=== PATIENT | female | born 1985 | race African-American/Black ===

== ENCOUNTER 2019-07-29 07:00 | Outpatient (RCR) | payer BC, SELFPAY ==
[2019-07-19 14:27] VITALS: BMI 42.1
--- NOTE | 2019-07-29 07:23 | WPDPN ---
Progress Note: A&P Assessment and Plan (1) Open wound of left breast: Code(s): S21.002A - Unspecified open wound of left breast, initial encounter Status: Acute Assessment and Plan: The wound is getting smaller in size. I think it is still reasonable to proceed with imaging and we are working on this. I will see her back. Continue dressing changes. She has a full list of instructions. Understands what monitor for. He is going to call with any questions or concerns. (2) History of bilateral breast reduction surgery: Code(s): Z98.890 - Other specified postprocedural states Status: Acute Review of Systems Review of Systems: All systems reviewed & are unremarkable except as noted in HPI and below Exam Const: General: comfortable, no acute distress, alert and awake; No acute distress Orientation/consciousness: oriented to person HENMT: Head: normal to inspection Ears: external ears normal General nose exam: Normal external nose present Face and sinus: normal facial exam Eyes: General: appearance normal, both eyes and all related structures Periorbital: periorbital findings normal Eyelids: eyelids normal Conjunctivae: conjunctivae normal Neck: Neck: normal visual inspection Chest: Chest palpation & inspection: normal inspection of the chest Resp: Effort & Inspection: normal respiratory effort and able to speak in complete sentences GI: Inspection: normal to inspection Skin: Other: Left breast is healing well. There is no signs of infection. No hematoma. No seroma. Wound is smaller in size today. Good granulation tissue. Neuro: General: oriented to person Psych: Appearance: grossly normal Mental Status: mental status grossly normal Objective Data Meds/Results Medications: Active Medications Generic Name Dose Route Start Last Admin Trade Name Freq PRN Reason Stop Dose Admin Silver Nitrate 1 applic 07/19/19 10:20 Silvergel TOPICAL 10/17/19 23:55 PRN PRN Wound Care Wound Care/Dressing Products 1 patch 07/19/19 10:21 Mepilex Transfer Drsg 6x8 TOPICAL 10/17/19 23:55 PRN PRN Wound Care
--- NOTE | 2019-08-12 07:49 | PCWOUND ---
WOCNNOTE Patient did not show up for appointment and did not answer phone, left message.
--- NOTE | 2019-08-16 07:59 | PCWOUND ---
WOCN NOTE patient did not show up for her appointment, no call was made to cancel. This is 2nd no show cancellation in 1 week.
== END 2019-09-04 14:55 | disposition home or self-care (01) ==
LOC: ANHWOC 07:00
PROVIDERS: Visit Provider Surgery Plastic and Reconstructive Surgery
DX: S21.002D Unspecified open wound of left breast, subsequent encounter (principal)
CPT/HCPCS: 99212; 99213; G0463; L8000

== ENCOUNTER 2019-08-08 09:35 | Outpatient (CLI) | payer BC, SELFPAY ==
--- NOTE | ~2019-08-08 | US_ITS ---
US breast LT limited INDICATION: Palpable left breast abnormality. Open wound. History of breast reduction surgery. TECHNIQUE: Dedicated Limited left breast ultrasound COMPARISON: No prior studies for comparison. FINDINGS: The left breast is composed of normal heterogeneous echotexture without focal solid or cyst ic mass. IMPRESSION: 1: Normal left breast ultrasound. BI-RADS CATEGORY 1 - NEGATIVE Reviewed, dictated and finalized at location A.
== END 2019-08-08 09:36 ==
PROVIDERS: Visit Provider Surgery Plastic and Reconstructive Surgery
DX: N63.20 Unspecified lump in the left breast, unspecified quadrant (principal); S21.002A Unspecified open wound of left breast, initial encounter
CPT/HCPCS: 76642